=== PATIENT | female | born 1935 | race Caucasian/White ===

== ENCOUNTER 2016-08-14 17:00 | Emergency (ER) | payer MEDICARE, MEDICAID ==
[~2016-08-14 17:00] MED LIST: ABILIFY10 MG PO; NABUMETONE500 MG PO; [UNRECOGNIZED DRUG - OTHER]
[2016-08-14] MEDS ORDERED: ASPIR 8181 M1 PO (18:18)
== END 2016-08-14 18:40 ==
LOC: EDMED 17:00
DX: S09.90XA Unspecified injury of head, initial encounter (principal); F20.9 Schizophrenia, unspecified; M19.90 Unspecified osteoarthritis, unspecified site; Z87.891 Personal history of nicotine dependence; Z79.82 Long term (current) use of aspirin; Z79.899 Other long term (current) drug therapy; W01.0XXA Fall on same level from slipping, tripping and stumbling without subsequent striking against object, initial encounter; Y92.019 Unspecified place in single-family (private) house as the place of occurrence of the external cause